=== PATIENT | female | born 1995 | race American Indian/Alaskan Native ===

== ENCOUNTER 2019-01-29 18:49 | Emergency (ER) | payer SELFPAY ==
[2019-01-29 20:42] LABS: Basophils # (Auto) 0.1 K/mm3 (0.0-0.1); Basophils % (Auto) 0.9 % (0.0-1.8); Eosinophils # (Auto) 0.2 K/mm3 (0.0-0.4); Eosinophils % (Auto) 1.8 % (0.0-4.3); Hematocrit 33.9 % (30.3-42.9); Hemoglobin 11.4 gm/dl (10.1-14.3); Lymphocytes # (Auto) 2.7 K/mm3 (1.2-5.4); Lymphocytes % (Auto) 21.1 % (13.4-35.0); Mean Corpuscular HGB Conc 34 % (30-34); Mean Corpuscular Volume 88 fl (79-97); Monocytes # (Auto) 1.4 K/mm3 (0.0-0.8); Platelet Count 397 K/mm3 (140-440); Red Blood Count 3.88 M/mm3 (3.65-5.03); Red Cell Distribution Width 13.6 % (13.2-15.2)
[2019-01-29 20:57] LABS: BUN/Creatinine Ratio 13; Blood Urea Nitrogen 8 mg/dL (7-17); Calcium 8.7 mg/dL (8.4-10.2); Hemolysis Index 4
[2019-01-29] MEDS ORDERED: ATIVAN IM STA (23:32)
--- NOTE | 2019-01-29 23:40 | Emergency Department Report ---
ED Medical Clearance HPI - General Chief complaint: Psych Stated complaint: METH&HEROIN DETOX/MEDICAL CLEARANCE Time Seen by Provider: 01/29/19 23:11 Source: patient, EMS Mode of arrival: Stretcher - History of Present Illness Initial comments: 23-year-old heroin addict presents emergency department by [facility] detox facility was she was attempting rehabilitation for heroin and methadone. Patient states she last took methadone this morning and advised to come to the e mergency department for clearance currently she is writhing in the bed constantly moving and fidgeting appears to be in no acute distress. No shortness of breath no coughing no diarrhea or visible rashes Place: home Alledged Intoxication: Yes Traumatic Symptoms: denies traumatic injury Associated Symptoms: denies: shortness of breath, palpitations, diaphoresis, headaches, anorexia, malaise, seizure, syncope, weakness Treatments Prior to Arrival: none Home medications: Home Medications Medication Instructions Recorded Confirmed Last Taken Benztropine [Cogentin] 0.5 mg PO BID 01/30/19 01/30/19 Unknown FLUoxetine HCL [PROzac] 40 mg PO QDAY 01/30/19 01/30/19 Unknown Haloperidol [Haldol] 1 mg PO BID 01/30/19 01/30/19 Unknown Allergies/Adverse reactions: Allergies Allergy/AdvReac Type Severity Reaction Status Date / Time No Known Allergies Allergy Unverified 01/29/19 19:41 ED Review of Systems ROS: Stated complaint: METH&HEROIN DETOX/MEDICAL CLEARANCE Other details as noted in HPI Comment: All other systems reviewed and negative ED Past Medical Hx - Past Medical History Previous Medical History?: Yes Hx Psychiatric Treatment: Yes (bipolar) Additional medical history: ovarian cysts - Surgical History Past Surgical History?: No - Social History Smoking Status: Current Every Day Smoker Substance Use Type: Alcohol, Heroin, Methamphetamines - Medications Home Medications: Home Medications Medication Instructions Recorded Confirmed Last Taken Type Benztropine [Cogentin] 0.5 mg PO BID 01/30/19 01/30/19 Unknown History FLUoxetine HCL [PROzac] 40 mg PO QDAY 01/30/19 01/30/19 Unknown History Haloperidol [Haldol] 1 mg PO BID 01/30/19 01/30/19 Unknown History ED Physical Exam - General Limitations: No Limitations General appearance: alert, in no apparent distress, other (no distress alert does display repetitive compulsive movements) - Head Head exam: Present: atraumatic, normocephalic - Eye Eye exam: Present: normal appearance, PERRL Pupils: Present: normal accommodation - ENT ENT exam: Present: normal exam, mucous membranes moist, other (severe dental erosion and several dental caries poor dentition) - Neck Neck exam: Present: normal inspection - Respiratory Respiratory exam: Present: normal lung sounds bilaterally. Absent: respiratory distress, wheezes, rales, chest wall tenderness, accessory muscle use - Cardiovascular Cardiovascular Exam: Present: regular rate, normal rhythm. Absent: bradycardia, tachycardia, systolic murmur, diastolic murmur, rubs, gallop - GI/Abdominal GI/Abdominal exam: Present: soft, normal bowel sounds. Absent: tenderness, guarding, hyperactive bowel sounds, hypoactive bowel sounds, organomegaly, mass - Extremities Exam Extremities exam: Present: normal inspection, normal capillary refill - Back Exam Back exam: Present: normal inspection. Absent: CVA tenderness (R), CVA tenderness (L) - Neurological Exam Neurological exam: Present: alert - Psychiatric Psychiatric exam: Present: normal affect, anxious - Skin Skin exam: Present: warm, dry, intact, normal color. Absent: rash ED Course Vital Signs 01/29/19 01/29/19 01/30/19 19:37 20:18 02:00 Temperature 98.3 F 98.6 F 98.4 F Pulse Rate 119 H 113 H 111 H Respiratory 18 18 20 Rate Blood Pressure 127/85 Blood Pressure 150/88 143/78 [Right] O2 Sat by Pulse 100 100 100 Oximetry ED Medical Decision Making - Lab Data Result diagrams: 01/29/19 20:15 01/29/19 20:15 ED Disposition Clinical Impression: Drug abuse and dependence, Desire for detoxification Disposition: DC-01 TO HOME OR SELFCARE Is pt being admited?: No Does the pt Need Aspirin: No Condition: Stable Instructions: Medical Clearance for Substance Abuse Treatment (ED) Additional Instructions: Patient is clear for discharge to the detoxification facility Referrals: JONELLE PEREZ MD [Primary Care Provider] - 3-5 Days
[2019-01-30 05:46] VITALS: BP 127/85
== END 2019-01-30 05:46 | disposition home or self-care (01) ==
LOC: ED 18:49
DX: F11.120 Opioid abuse with intoxication, uncomplicated (principal); F11.23 Opioid dependence with withdrawal; F31.9 Bipolar disorder, unspecified; F17.200 Nicotine dependence, unspecified, uncomplicated; F14.10 Cocaine abuse, uncomplicated; F15.10 Other stimulant abuse, uncomplicated
CPT/HCPCS: 36415; 80048; 84703; 85025; 96372; 99283; J2060; 80320; G0480